=== PATIENT | male | born 1955 | race Caucasian/White ===

== ENCOUNTER 2016-08-29 12:44 | Emergency (ER) | payer MEDICARE, OTHER ==
[2016-08-29 13:37] LABS: BASO % 0.1 % (0.2-1.2); EOS # 0.6 10_X3_uL (0.0-0.5); EOS % 4.4 % (0.8-7.0); GRAN # 8.6 10_X3_uL (1.8-5.4); GRAN % 59.7 % (34.0-67.9); HEMOGLOBIN 15.8 g/dL (13.7-17.5); LYMPH # 3.1 10_X3_uL (1.3-3.6); LYMPH % 21.7 % (21.8-53.1); MEAN CORPUSCULAR HGB CONC 35.9 g/dL (32.0-36.0); MEAN CORPUSCULAR VOLUME 91.9 fL (79-92); MEAN PLATELET VOLUME 8.7 fl (7.5-11.5); MONO % 14.1 % (5.3-12.2); PLATELET COUNT 308 x10_3/uL (163-337); RED BLOOD COUNT 4.79 x10_6/uL (4.6-6.1); RED CELL DISTRIBUTION WIDTH 13.6 % (11.6-14.4); WHITE BLOOD COUNT 14.4 x10_3/uL (4.2-9.1)
[2016-08-29 13:52] LABS: ARTERIAL BLOOD GAS BASE EXCESS 1.1 mmol/L (-2.0-3.0); ARTERIAL BLOOD GAS HCO3 26.1 mmol/L (22-26); ARTERIAL BLOOD GAS PCO2 45.1 mmHg (35-48); ARTERIAL BLOOD GAS pH 7.38 (7.35-7.45)
[2016-08-29 14:13] LABS: ALBUMIN 4.1 gm/dL (3.4-5.0); ALKALINE PHOSPHATASE 64 U/L (50-136); ALT/SGPT 11 U/L (7.53-40.17); AST/SGOT 14 U/L (6.66-35.34); BILIRUBIN,TOTAL 0.39 mg/dL (0.0-1.0); BLOOD UREA NITROGEN 10 mg/dL (7-18); CALCIUM 9.3 mg/dL (8.7-10.7); CARBON DIOXIDE 24 mmol/L (21-32); CREATININE 0.8 mg/dL (0.6-1.3); GLUCOSE,RANDOM 120 mg/dL (70-99); POTASSIUM 4.2 mmol/L (3.5-5.1); SODIUM 138 mmol/L (136-145)
== END 2016-08-29 16:20 | disposition left against medical advice (07) ==
LOC: ER 12:44
PROVIDERS: General Practice
DX: J44.0 Chronic obstructive pulmonary disease with (acute) lower respiratory infection (principal); J18.9 Pneumonia, unspecified organism; R59.0 Localized enlarged lymph nodes; R06.2 Wheezing; R06.02 Shortness of breath; R00.0 Tachycardia, unspecified; F41.9 Anxiety disorder, unspecified; M19.90 Unspecified osteoarthritis, unspecified site; F17.210 Nicotine dependence, cigarettes, uncomplicated; Z79.899 Other long term (current) drug therapy
CPT/HCPCS: 36415; 36600; 71250; 80053; 82803; 83605; 83880; 85025; 85379; 87040; 93005; 94664; 96374; 99284; 99285-25; J2930